=== PATIENT | female | born 1935 ===

== ENCOUNTER 2022-11-17 16:06 | Inpatient (IN) | payer MEDICARE, BC, MEDICAID ==
[~2022-11-17] VITALS: Ht 162.6 cm; Wt 82.2 kg
[2022-11-17 16:49] LABS: BASOPHILS % (AUTO) 0.9 % (0.0-2.0); EOSINOPHILS % (AUTO) 5.7 % (1.0-6.0); HEMATOCRIT 34.5 % (36-46); HEMOGLOBIN 11.2 g/dL (12.0-16.0); LYMPHOCYTES # (AUTO) 1.5 K/uL (1.0-4.8); LYMPHOCYTES % (AUTO) 19.6 % (22.0-44.0); MEAN CORPUSCULAR HEMOGLOBIN 30.4 pg (26.0-34.0); MEAN CORPUSCULAR HGB CONC 32.3 G/dL (31.0-37.0); MEAN CORPUSCULAR VOLUME 94 fL (80-100); MONOCYTES # (AUTO) 0.9 K/uL (0.1-1.0); MONOCYTES % (AUTO) 11.7 % (2.0-9.0); NEUTROPHILS # (AUTO) 4.6 K/uL (1.8-7.7); NEUTROPHILS % (AUTO) 62.1 % (40.0-70.0); PLATELET COUNT (AUTO) 205 K/uL (150-450); RED BLOOD CELL COUNT(AUTO) 3.67 MIL/uL (4.00-5.20); RED CELL DISTRIBUTION WIDTH 14.2 % (11.5-14.5)
[2022-11-17 16:58] LABS: CALCIUM, TOTAL 8.4 mg/dL (8.8-10.5); CREATININE 0.96 mg/dL (0.60-1.30); POTASSIUM 4.3 mmol/L (3.5-5.1)
[2022-11-17 17:04] LABS: ALBUMIN 3.1 g/dL (3.4-5.0); BILIRUBIN,TOTAL 0.2 mg/dL (0.1-1.0); TOTAL PROTEIN, SERUM 6.4 g/dL (6.4-8.2)
[2022-11-17] MEDS ORDERED: ATOR10TA PO (17:51)
[2022-11-17 18:00] LABS: ABG BASE EXCESS 4.5 mmol/L (-2.0-3.0); ABG CARBOXYHEMOGLOBIN 0.3 % (0.0-1.5); ABG HCO3 27.6 mmol/L (22.0-26.0); ABG METHEMOGLOBIN 0.3 % (0.0-1.5); ABG OXYGEN CONTENT 15.2 mL/dL (15.0-23.0); ABG OXYHEMOGLOBIN 91.4 % (94.0-100.0); ABG PCO2 51 mmHg (35-45); ABG PH 7.383 (7.35-7.450); ABG TOTAL HEMOGLOBIN 11.8 G/dL (12.0-18.0); PO2, ARTERIAL BG 62.2 mmHg (71.0-79.0); SOURCE, BLOOD GAS ARTERIAL; TEMPERATURE, FAHRENHEIT, BG 98.4 FAHREN (96.0-98.6)
[2022-11-17 18:01] LABS: ABG A-A DIFF O2 106.8 mmHg (10-20.0); O2 DEVICE,BLOOD GAS CANNULA (ROOM AIR); SITE, BLOOD GAS LFT RADIAL
[2022-11-17] MEDS ORDERED: FERR325T27 PO (18:07)
[2022-11-17] MEDS ORDERED: AMLO-257 PO (18:07)
[2022-11-17] MEDS ORDERED: LOSA-382 PO (18:07)
[2022-11-17] MEDS ORDERED: DICL100G60 TP (18:07)
[2022-11-17] MEDS ORDERED: MIRT-89 PO (18:07)
[2022-11-17] MEDS ORDERED: ALBU18HF12 IH (18:07)
[2022-11-17] MEDS ORDERED: SERT-158 PO (18:07)
[2022-11-17] MEDS ORDERED: CALC-613 PO (18:07)
[2022-11-17] MEDS ORDERED: BISA-151 PO (18:07)
[2022-11-17] MEDS ORDERED: GABA-1216 PO (18:07)
[2022-11-17] MEDS ORDERED: METO25 PO (18:07)
[2022-11-17] MEDS ORDERED: ACET-784 PO (18:07)
[2022-11-17] MEDS ORDERED: FEXO-353 PO (18:07)
[2022-11-17] MEDS ORDERED: DOCU50LI40 PO (18:07)
[2022-11-17] MEDS ORDERED: SIME80TA82 PO (18:07)
[2022-11-17] MEDS ORDERED: MAGN-169 PO (18:07)
[2022-11-17] MEDS ORDERED: ACETAMINOPHEN 325 MG TABLET PO PRN ×2 (20:00→20:15)
[2022-11-17] MEDS ORDERED: MAGNESIUM HYDROXIDE SUSPENSION 30 ML UDCUP PO PRN (20:00)
[2022-11-17] MEDS ORDERED: ALBUTEROL SULFATE HFA 90 MCG/PUFF 8 GM INHALER IH PRN (20:00)
[2022-11-17] MEDS ORDERED: SIMETHICONE 80 MG CHEWABLE TABLET PO PRN (20:00)
[2022-11-17] MEDS ORDERED: BISACODYL 5 MG EC TABLET PO PRN (20:00)
[2022-11-17] MEDS ORDERED: ALBUTEROL SULFATE 2.5 MG/0.5 ML NEB SOLUTION NEB PRN (20:15)
[2022-11-17] MEDS ORDERED: IPRATROPIUM BROMIDE 0.5 MG/2.5 ML NEB SOLUTION NEB PRN (20:15)
[2022-11-17] MEDS ORDERED: ONDANSETRON HCL 4 MG/2 ML VIAL IVP PRN (20:15)
[2022-11-17] MEDS ORDERED: IOHEXOL 350 MG/ML 100 ML VIAL ONE (20:24)
[2022-11-17] MEDS ORDERED: SODIUM CHLORIDE 0.9% 100 ML ONE (20:24)
[2022-11-17 21:28] LABS: COVID AG,FIA SOURCE NASAL SWAB
[2022-11-17 22:25] VITALS: BP 129/61; PULSE 75; RESP 22; TEMP 98.4
[2022-11-17] MEDS: ATORVASTATIN CALCIUM 10 MG TABLET PO SCH (23:53)
[2022-11-17] MEDS: MIRTAZAPINE 15 MG TABLET PO SCH (23:53)
[2022-11-17 23:54] VITALS: BP 139/67; PULSE 84; RESP 18; TEMP 97.8; O2SAT 98
[2022-11-17] MEDS: METOPROLOL TARTRATE 25 MG TABLET PO SCH (23:54)
[2022-11-17] MEDS: DICLOFENAC SODIUM 1% 100 GM GEL [2GM] TP SCH (23:54)
[2022-11-17] MEDS: DOCUSATE SODIUM 100 MG CAPSULE PO SCH (23:54)
[2022-11-18] VITALS (9 sets, daily range): BP systolic 103–148; BP diastolic 57–71; PULSE 18–86; RESP 14–20; TEMP 98.2–99.6; O2SAT 96
[2022-11-18] MEDS: HEPARIN SODIUM,PORCINE 5,000 UNITS/ML VIAL SQ SCH ×3 (00:32→15:39)
[2022-11-18] MEDS: FEXOFENADINE HCL 60 MG TABLET PO SCH (08:23)
[2022-11-18] MEDS: METOPROLOL TARTRATE 25 MG TABLET PO SCH ×2 (08:23→21:21)
[2022-11-18] MEDS: CALCIUM CARBONATE 500 MG CHEWABLE TABLET PO SCH (08:23)
[2022-11-18] MEDS: FERROUS SULFATE 325 MG EC TABLET PO SCH (08:24)
[2022-11-18] MEDS: DICLOFENAC SODIUM 1% 100 GM GEL [2GM] TP SCH ×3 (08:24→21:22)
[2022-11-18] MEDS: DOCUSATE SODIUM 100 MG CAPSULE PO SCH ×2 (08:24→21:22)
[2022-11-18] MEDS: LOSARTAN POTASSIUM 50 MG TABLET PO SCH (08:24)
[2022-11-18] MEDS: GABAPENTIN 100 MG CAPSULE PO SCH (08:24)
[2022-11-18] MEDS: SERTRALINE HCL 50 MG TABLET PO SCH (08:24)
[2022-11-18] MEDS: AmLODIPine BESYLATE 5 MG TABLET PO SCH (08:24)
[2022-11-18 09:48] LABS: EOSINOPHILS % (AUTO) 3.3 % (1.0-6.0); HEMATOCRIT 34.6 % (36-46); LYMPHOCYTES # (AUTO) 1.1 K/uL (1.0-4.8); LYMPHOCYTES % (AUTO) 15.8 % (22.0-44.0); MEAN CORPUSCULAR HGB CONC 31.9 G/dL (31.0-37.0); MEAN CORPUSCULAR VOLUME 94 fL (80-100); MONOCYTES # (AUTO) 0.6 K/uL (0.1-1.0); MONOCYTES % (AUTO) 8.2 % (2.0-9.0); NEUTROPHILS # (AUTO) 4.8 K/uL (1.8-7.7); NEUTROPHILS % (AUTO) 71.7 % (40.0-70.0); PLATELET COUNT (AUTO) 228 K/uL (150-450); RED BLOOD CELL COUNT(AUTO) 3.68 MIL/uL (4.00-5.20); RED CELL DISTRIBUTION WIDTH 14.5 % (11.5-14.5)
[2022-11-18 09:54] LABS: CALCIUM, TOTAL 8.4 mg/dL (8.8-10.5); CREATININE 0.99 mg/dL (0.60-1.30); POTASSIUM 4.3 mmol/L (3.5-5.1)
[2022-11-18] MEDS: ATORVASTATIN CALCIUM 10 MG TABLET PO SCH (21:22)
[2022-11-18] MEDS: MIRTAZAPINE 15 MG TABLET PO SCH (21:22)
[2022-11-19] MEDS: HEPARIN SODIUM,PORCINE 5,000 UNITS/ML VIAL SQ SCH ×4 (00:38→23:40)
[2022-11-19 08:13] VITALS: BP 135/69; PULSE 75; RESP 17; TEMP 98.6
[2022-11-19] MEDS: METOPROLOL TARTRATE 25 MG TABLET PO SCH ×2 (08:20→21:06)
[2022-11-19] MEDS: FERROUS SULFATE 325 MG EC TABLET PO SCH (08:20)
[2022-11-19] MEDS: DOCUSATE SODIUM 100 MG CAPSULE PO SCH ×2 (08:20→21:06)
[2022-11-19] MEDS: GABAPENTIN 100 MG CAPSULE PO SCH (08:20)
[2022-11-19] MEDS: FEXOFENADINE HCL 60 MG TABLET PO SCH (08:20)
[2022-11-19] MEDS: AmLODIPine BESYLATE 5 MG TABLET PO SCH (08:20)
[2022-11-19] MEDS: CALCIUM CARBONATE 500 MG CHEWABLE TABLET PO SCH (08:21)
[2022-11-19] MEDS: LOSARTAN POTASSIUM 50 MG TABLET PO SCH (08:21)
[2022-11-19] MEDS: DICLOFENAC SODIUM 1% 100 GM GEL [2GM] TP SCH ×3 (08:21→21:06)
[2022-11-19] MEDS: SERTRALINE HCL 50 MG TABLET PO SCH (08:25)
[2022-11-19 16:22] VITALS: BP 137/56; PULSE 62; RESP 18; TEMP 98.7
[2022-11-19 20:03] VITALS: BP 134/89; PULSE 74; RESP 18; TEMP 98.3
[2022-11-19] MEDS: MIRTAZAPINE 15 MG TABLET PO SCH (21:06)
[2022-11-19] MEDS: ATORVASTATIN CALCIUM 10 MG TABLET PO SCH (21:06)
[2022-11-19 23:25] VITALS: BP 143/84; PULSE 64; RESP 18; TEMP 98.5
[2022-11-20 04:17] VITALS: BP 132/58; PULSE 58; RESP 19; TEMP 97.9
[2022-11-20 07:40] VITALS: BP 142/55; PULSE 68; TEMP 97.7
[2022-11-20] MEDS: FEXOFENADINE HCL 60 MG TABLET PO SCH (09:35)
[2022-11-20] MEDS: GABAPENTIN 100 MG CAPSULE PO SCH (09:36)
[2022-11-20] MEDS: HEPARIN SODIUM,PORCINE 5,000 UNITS/ML VIAL SQ SCH ×2 (09:36→16:09)
[2022-11-20] MEDS: DOCUSATE SODIUM 100 MG CAPSULE PO SCH ×2 (09:36→20:32)
[2022-11-20] MEDS: SERTRALINE HCL 50 MG TABLET PO SCH (09:36)
[2022-11-20] MEDS: LOSARTAN POTASSIUM 50 MG TABLET PO SCH (09:36)
[2022-11-20] MEDS: METOPROLOL TARTRATE 25 MG TABLET PO SCH ×2 (09:36→20:32)
[2022-11-20] MEDS: AmLODIPine BESYLATE 5 MG TABLET PO SCH (09:36)
[2022-11-20] MEDS: FERROUS SULFATE 325 MG EC TABLET PO SCH (09:37)
[2022-11-20] MEDS: CALCIUM CARBONATE 500 MG CHEWABLE TABLET PO SCH (09:37)
[2022-11-20] MEDS: DICLOFENAC SODIUM 1% 100 GM GEL [2GM] TP SCH ×3 (09:43→20:33)
[2022-11-20 11:15] VITALS: BP 141/65; PULSE 75; RESP 18; TEMP 97.8
[2022-11-20 15:47] VITALS: BP 131/64; PULSE 72; RESP 16; TEMP 97.6
[2022-11-20] MEDS: MIRTAZAPINE 15 MG TABLET PO SCH (20:32)
[2022-11-20] MEDS: ATORVASTATIN CALCIUM 10 MG TABLET PO SCH (20:32)
[2022-11-20 20:37] VITALS: BP 128/49; PULSE 79; RESP 18; TEMP 98.7
[2022-11-21] MEDS: HEPARIN SODIUM,PORCINE 5,000 UNITS/ML VIAL SQ SCH ×2 (00:05→09:14)
[2022-11-21 00:40] VITALS: BP 130/57; PULSE 66; RESP 18; TEMP 98.1
[2022-11-21 05:28] VITALS: BP 130/61; PULSE 69; RESP 18; TEMP 98.5
[2022-11-21 07:26] LABS: BASOPHILS % (AUTO) 1.1 % (0.0-2.0); EOSINOPHILS % (AUTO) 6.9 % (1.0-6.0); HEMATOCRIT 32.7 % (36-46); HEMOGLOBIN 10.6 g/dL (12.0-16.0); LYMPHOCYTES # (AUTO) 1.7 K/uL (1.0-4.8); LYMPHOCYTES % (AUTO) 25.8 % (22.0-44.0); MEAN CORPUSCULAR HEMOGLOBIN 30.6 pg (26.0-34.0); MEAN CORPUSCULAR HGB CONC 32.5 G/dL (31.0-37.0); MEAN CORPUSCULAR VOLUME 94 fL (80-100); MONOCYTES # (AUTO) 0.7 K/uL (0.1-1.0); MONOCYTES % (AUTO) 10.5 % (2.0-9.0); NEUTROPHILS # (AUTO) 3.6 K/uL (1.8-7.7); NEUTROPHILS % (AUTO) 55.7 % (40.0-70.0); PLATELET COUNT (AUTO) 187 K/uL (150-450); RED BLOOD CELL COUNT(AUTO) 3.48 MIL/uL (4.00-5.20); RED CELL DISTRIBUTION WIDTH 13.8 % (11.5-14.5)
[2022-11-21 07:29] VITALS: BP 130/60; PULSE 76; RESP 18; TEMP 97.6
[2022-11-21 07:49] LABS: CALCIUM, TOTAL 8.1 mg/dL (8.8-10.5); CREATININE 0.96 mg/dL (0.60-1.30); POTASSIUM 4.4 mmol/L (3.5-5.1)
[2022-11-21] MEDS: CALCIUM CARBONATE 500 MG CHEWABLE TABLET PO SCH (09:00)
[2022-11-21] MEDS: GABAPENTIN 100 MG CAPSULE PO SCH (09:10)
[2022-11-21] MEDS: AmLODIPine BESYLATE 5 MG TABLET PO SCH (09:10)
[2022-11-21] MEDS: LOSARTAN POTASSIUM 50 MG TABLET PO SCH (09:11)
[2022-11-21] MEDS: DOCUSATE SODIUM 100 MG CAPSULE PO SCH (09:13)
[2022-11-21] MEDS: FERROUS SULFATE 325 MG EC TABLET PO SCH (09:13)
[2022-11-21] MEDS: SERTRALINE HCL 50 MG TABLET PO SCH (09:13)
[2022-11-21] MEDS: METOPROLOL TARTRATE 25 MG TABLET PO SCH (09:13)
[2022-11-21] MEDS: FEXOFENADINE HCL 60 MG TABLET PO SCH (09:14)
[2022-11-21] MEDS: DICLOFENAC SODIUM 1% 100 GM GEL [2GM] TP SCH (09:15)
[2022-11-21 11:30] VITALS: BP 117/63; PULSE 76; RESP 18; TEMP 97.9
== END 2022-11-21 14:35 | DRG 189 ==
LOC: EMS 16:16 → 5S 20:44
PROVIDERS: ADMIT Internal Medicine; ATTEND Internal Medicine
DX: J96.21 Acute and chronic respiratory failure with hypoxia (principal); I50.33 Acute on chronic diastolic (congestive) heart failure; I11.0 Hypertensive heart disease with heart failure; E78.5 Hyperlipidemia, unspecified; Z20.822 Contact with and (suspected) exposure to COVID-19; I25.10 Atherosclerotic heart disease of native coronary artery without angina pectoris; J44.9 Chronic obstructive pulmonary disease, unspecified; D64.9 Anemia, unspecified; I89.0 Lymphedema, not elsewhere classified; F32.A Depression, unspecified; F41.9 Anxiety disorder, unspecified; E66.9 Obesity, unspecified; Z99.81 Dependence on supplemental oxygen; Z88.0 Allergy status to penicillin; Z88.8 Allergy status to other drugs, medicaments and biological substances; Z68.31 Body mass index [BMI] 31.0-31.9, adult
CPT/HCPCS: 36600; 70450; 71045; 71275; 76536; 80048; 80053; 82805; 83735; 83880; 84484; 85025; 87081; 93005; 93306; 93970; 94640; 97162; 97530; 99285; J1644; J7050; Q9967; 36415-L1; 36415-TC